=== PATIENT | female | born 1950 | race Caucasian/White ===

== ENCOUNTER → 2020-10-28 | Outpatient (CLI) | payer MEDICARE ==
[~2020-10-28] MED LIST: ELIQUIS2.5 MG PO; ENDOCET 7.5-321 EACH PO; FENOFIBRATE160 MG PO; FOSINOPRIL-HCT1 EAC1 PO; JANUVIA25 MG PO; LEXAPRO20 MG PO; NEURONTIN300 MG PO; NEXIUM40 MG PO; TRAZODONE HCL100 MG PO
[2020-10-28 10:20] LABS: HEMOGLOBIN 13.3 gm/dl (12.3-15.3); RED BLOOD COUNT 4.43 M/UL (4.00-5.10); WHITE BLOOD COUNT 10.1 K/UL (4.5-11.0)
[2020-10-28 10:37] LABS: BUN/CREATININE RATIO 30 (0-10)
== END ==
LOC: OPSV2 08:54 → EDSTATUS 09:00 → OPSV2 09:00
PROVIDERS: Orthopaedic Surgery
DX: Z01.818 Encounter for other preprocedural examination (principal); M17.11 Unilateral primary osteoarthritis, right knee; R94.31 Abnormal electrocardiogram [ECG] [EKG]
CPT/HCPCS: 80048; 83036; 85025; 87081; 93005

== ENCOUNTER → 2020-12-30 | Outpatient (CLI) | payer MEDICARE ==
[2020-12-30 11:00] LABS: HEMOGLOBIN 12.7 gm/dl (12.3-15.3); RED BLOOD COUNT 4.17 M/UL (4.00-5.10); WHITE BLOOD COUNT 7.1 K/UL (4.5-11.0)
[2020-12-30 11:20] LABS: BUN/CREATININE RATIO 38 (0-10)
== END ==
LOC: EDSTATUS 10:00 → OPSV2 10:00
PROVIDERS: Orthopaedic Surgery
DX: Z01.818 Encounter for other preprocedural examination (principal); M17.11 Unilateral primary osteoarthritis, right knee; R94.31 Abnormal electrocardiogram [ECG] [EKG]
CPT/HCPCS: 36415; 80048; 81001; 85025; 93005

== ENCOUNTER → 2021-01-11 | Outpatient (CLI) | payer MEDICARE ==
[2021-01-11 10:49] LABS: BUN/CREATININE RATIO 50 (0-10)
== END ==
LOC: LAB 09:56
PROVIDERS: Orthopaedic Surgery
DX: Z01.812 Encounter for preprocedural laboratory examination (principal)
CPT/HCPCS: 36415; 80048; 86850; 86900; 86901

== ENCOUNTER 2021-01-12 07:04 | Day surgery (SDC) | payer MEDICARE ==
[~2021-01-12] VITALS: Ht 157.5 cm; Wt 77.1 kg
[~2021-01-12 07:04] MED LIST changes: -ELIQUIS2.5 MG PO; -ENDOCET 7.5-321 EACH PO; -JANUVIA25 MG PO
[2021-01-12] MEDS ORDERED: JANUVIA25 MG PO (08:05)
[2021-01-12] MEDS ORDERED: ENDOCET 7.5-321 EACH PO (09:49)
[2021-01-12] MEDS ORDERED: ELIQUIS2.5 MG PO (09:49)
[2021-01-13 03:06] LABS: RED BLOOD COUNT 3.7 M/UL (4.00-5.10); WHITE BLOOD COUNT 17.4 K/UL (4.5-11.0)
[2021-01-13 03:25] LABS: BUN/CREATININE RATIO 31 (0-10)
== END 2021-01-13 12:40 | disposition home health service (06) ==
LOC: OR 07:04 → EDSTATUS 09:30 → M/S 13:00 → OR 01-13 12:40
PROVIDERS: Orthopaedic Surgery
PROC: 3E0T3BZ Introduction of Anesthetic Agent into Peripheral Nerves and Plexi, Percutaneous Approach (ICD-10-PCS; 2021-01-12)
PROC: 3E0T3BZ Introduction of Anesthetic Agent into Peripheral Nerves and Plexi, Percutaneous Approach (ICD-10-PCS; 2021-01-12)
PROC: 0SRC0J9 Replacement of Right Knee Joint with Synthetic Substitute, Cemented, Open Approach (ICD-10-PCS; principal; 2021-01-12 09:30)
DX: M17.11 Unilateral primary osteoarthritis, right knee (principal); G89.18 Other acute postprocedural pain; I10 Essential (primary) hypertension; E11.9 Type 2 diabetes mellitus without complications; E78.5 Hyperlipidemia, unspecified; F41.9 Anxiety disorder, unspecified; K21.9 Gastro-esophageal reflux disease without esophagitis; Z20.822 Contact with and (suspected) exposure to COVID-19; Z79.84 Long term (current) use of oral hypoglycemic drugs; Z79.899 Other long term (current) drug therapy
CPT/HCPCS: 36415; 73560; 80048; 82962; 85027; 97110; 97110-GP-CQ; 97116-GP-CQ; 97162; 97166; 97535; C1776; J0171; J0690; J1100; J1885; J2270; J2370; J2704; J2795; J7120